=== PATIENT | female | born 1980 | race Caucasian/White ===

== ENCOUNTER 2017-09-07 11:55 | Day surgery (SDC) | payer OTHER ==
[~2017-09-07] VITALS: Ht 177.8 cm; Wt 71.2 kg
[~2017-09-07 11:55] MED LIST: ALLE; CHOL10002; Cryselle1 EACH PO; Daily Multiple1 EACH PO; FISH1000 PO; FLONASE ALLERG9.9 ML NS; Flovent Diskus50 MCG IH; Multiple Vitam1 EAC1 PO; NADO40; OMEP20ER PO; SULTRIDS PO; Sudogest30 MG PO; TRIA80TC TOP; VITAMIN D3400 UNIT PO
== END 2017-09-07 15:48 | disposition home or self-care (01) ==
LOC: ORSCSDS 11:55
PROVIDERS: Internal Medicine Gastroenterology
PROC: 0DJ08ZZ Inspection of Upper Intestinal Tract, Via Natural or Artificial Opening Endoscopic (ICD-10-PCS; principal; 2017-09-07 13:00)
DX: I85.00 Esophageal varices without bleeding (principal); I10 Essential (primary) hypertension; B15.9 Hepatitis A without hepatic coma; B19.20 Unspecified viral hepatitis C without hepatic coma; Z79.3 Long term (current) use of hormonal contraceptives; Z87.891 Personal history of nicotine dependence; Z79.899 Other long term (current) drug therapy
CPT/HCPCS: J7120

== ENCOUNTER 2018-02-08 12:45 | Emergency (ER) | payer OTHER ==
[~2018-02-08] VITALS: Ht 177.8 cm; Wt 70.3 kg
== END 2018-02-08 16:05 | disposition home or self-care (01) ==
LOC: ER 12:45
DX: S01.81XA Laceration without foreign body of other part of head, initial encounter (principal); S50.311A Abrasion of right elbow, initial encounter; S80.212A Abrasion, left knee, initial encounter; S80.211A Abrasion, right knee, initial encounter; W17.89XA Other fall from one level to another, initial encounter; Z79.899 Other long term (current) drug therapy; F17.200 Nicotine dependence, unspecified, uncomplicated
CPT/HCPCS: 12011; 70450; 72125; 73080; 90471; 90714; 99285-25; L0160

== ENCOUNTER 2020-01-30 22:25 | Emergency (ER) | payer OTHER ==
[~2020-01-30] VITALS: Ht 177.8 cm; Wt 90.7 kg
[~2020-01-30 22:25] MED LIST changes: +Bactrim Ds Tab1 EACH PO; +CEPH500 PO
== END 2020-01-30 22:46 | disposition home or self-care (01) ==
LOC: ER 22:25
DX: Z48.01 Encounter for change or removal of surgical wound dressing (principal); F17.210 Nicotine dependence, cigarettes, uncomplicated
CPT/HCPCS: 99282

== ENCOUNTER 2020-02-02 21:03 | Emergency (ER) | payer OTHER ==
[~2020-02-02] VITALS: Ht 177.8 cm; Wt 90.7 kg
== END 2020-02-03 00:37 | disposition home or self-care (01) ==
LOC: ER 21:03
DX: Z48.01 Encounter for change or removal of surgical wound dressing (principal); F17.210 Nicotine dependence, cigarettes, uncomplicated
CPT/HCPCS: 99282

== ENCOUNTER 2020-04-17 20:48 | Emergency (ER) | payer OTHER ==
[~2020-04-17] VITALS: Ht 177.8 cm; Wt 88.9 kg
[2020-04-17] MEDS ORDERED: CEFP200 PO (22:23)
== END 2020-04-17 22:34 | disposition home or self-care (01) ==
LOC: ER 20:48
DX: L03.116 Cellulitis of left lower limb (principal); L72.3 Sebaceous cyst; F17.210 Nicotine dependence, cigarettes, uncomplicated
CPT/HCPCS: 10060; 99283-25; A9270-GY

== ENCOUNTER 2020-05-02 11:17 | Emergency (ER) | payer OTHER ==
[~2020-05-02] VITALS: Ht 177.8 cm; Wt 81.2 kg
[~2020-05-02 11:17] MED LIST changes: +CEFP200 PO
[2020-05-02] MEDS ORDERED: CEPH500 PO (13:13)
[2020-05-02] MEDS ORDERED: Bactrim Ds Tab1 EACH PO (13:13)
== END 2020-05-02 13:59 | disposition home or self-care (01) ==
LOC: ER 11:17
DX: S61.216A Laceration without foreign body of right little finger without damage to nail, initial encounter (principal); L97.829 Non-pressure chronic ulcer of other part of left lower leg with unspecified severity; I10 Essential (primary) hypertension; F17.210 Nicotine dependence, cigarettes, uncomplicated; W26.0XXA Contact with knife, initial encounter
CPT/HCPCS: 99283; A9270-GY

== ENCOUNTER 2021-05-11 21:47 | Emergency (ER) | payer OTHER ==
[~2021-05-11] VITALS: Ht 177.8 cm; Wt 87.1 kg
[2021-05-12 00:05] LABS: Influenza A, PCR NEGATIVE (NEGATIVE); Influenza B, PCR NEGATIVE (NEGATIVE); Resp Syncytial Virus, PCR NEGATIVE (NEGATIVE); SARS-Cov-2 (COVID-19) PCR, MMC NEGATIVE (NEGATIVE)
== END 2021-05-12 00:40 | disposition home or self-care (01) ==
LOC: ER 21:47
PROVIDERS: Physician Assistant
DX: B34.9 Viral infection, unspecified (principal); Z20.822 Contact with and (suspected) exposure to COVID-19; I10 Essential (primary) hypertension; F17.200 Nicotine dependence, unspecified, uncomplicated
CPT/HCPCS: 0241U; 71045; 99284-25

== ENCOUNTER 2021-07-01 07:45 | Day surgery (SDC) | payer OTHER ==
[~2021-07-01] VITALS: Ht 177.8 cm; Wt 92.2 kg
[~2021-07-01 07:45] MED LIST changes: +FLONASE ALLERG9.9 ML; +NADO40 PO; +Naltrexone HCl50 MG PO
--- NOTE | 2021-07-01 08:26 | NUR ---
History, Chart, Medications and Allergies reviewed before start of procedure. Lungs clear T/O to Auscultation. Patient confirms NPO status and agrees with scheduled surgery. Pre-Op teaching done. Pt verbalizes understanding. Patient States Post-Procedure ride home has been arranged.
--- NOTE | 2021-07-01 09:08 | NUR ---
07/01/21 0908 Celia Marino History, Chart, Medications and Allergies reviewed before start of procedure. Patient confirms NPO status and agrees with scheduled surgery. 3-LEAD EKG REVIEWED WITH PHYSICIAN PRIOR TO START OF PROCEDURE. MONITOR INTACT WITH CONTINUOUS PULSE OXIMETRY AND INTERMITTENT BP. PATIENT DETERMINED TO BE ASA APPROPRIATE FOR PROPOFOL SEDATION PRIOR TO START OF PROCEDURE BY DR. BUENO.
--- NOTE | 2021-07-01 09:45 | NUR ---
Patient up to Ambulate independently. Gait steady. Discharge instructions reviewed with patient. Patient verbalizes understanding. Copy given to patient to take home. Patient States Post-Procedure ride home has been arranged. Discharged via wheelchair to private car for ride home. JOSE R PO FLUIDS WELL.
== END 2021-07-01 09:48 | disposition home or self-care (01) ==
LOC: ORSCMMR 07:45 → ORD 08:45 → ORSCMMR 09:48
PROVIDERS: Internal Medicine Gastroenterology
PROC: 0DJ08ZZ Inspection of Upper Intestinal Tract, Via Natural or Artificial Opening Endoscopic (ICD-10-PCS; principal; 2021-07-01 08:45)
DX: K70.30 Alcoholic cirrhosis of liver without ascites (principal); Z85.01 Personal history of malignant neoplasm of esophagus; Z86.19 Personal history of other infectious and parasitic diseases; Z79.899 Other long term (current) drug therapy
CPT/HCPCS: J2250; J2704; J7120

== ENCOUNTER → 2022-02-05 | Outpatient (CLI) | payer OTHER ==
[2022-02-05 17:14] LABS: BASOPHILS ABSOLUTE AUTO 0.07 K/mm3 (0.00-0.23); BASOPHILS PERCENT AUTO 1 % (0-2); EOSINOPHILS ABSOLUTE AUTO 0.16 K/mm3 (0.00-0.68); EOSINOPHILS PERCENT AUTO 3 % (0-6); Hematocrit 34.8 % (33.0-51.0); Hemoglobin 10.1 g/dL (11.5-16.0); IMMATURE GRAN ABSOLUTE AUTO 0.01 K/mm3 (0.00-0.10); IMMATURE GRAN PERCENT AUTO 0 % (0-1); LYMPHOCYTES ABSOLUTE AUTO 1.28 K/mm3 (0.84-5.20); LYMPHOCYTES PERCENT AUTO 24 % (21-46); MONOCYTES ABSOLUTE AUTO 0.52 K/mm3 (0.16-1.47); MONOCYTES PERCENT AUTO 10 % (4-13); Mean Corpuscular HGB 21.6 pg (26.0-34.0); Mean Corpuscular Volume 74 fL (80-100); Mean Platelet Volume 11.7 fL (9.1-12.4); NEUTROPHILS ABSOLUTE AUTO 3.23 K/mm3 (1.96-9.15); NEUTROPHILS PERCENT AUTO 61 % (41-73); Platelet Count 198 K/mm3 (150-400); RDW Coefficient Variation 19.1 % (11.7-14.2); RDW Standard Deviation 50.7 fL (35.1-46.3); Red Blood Cell Count 4.68 M/mm3 (3.80-5.20); White Blood Cell Count 5.27 K/mm3 (4.00-11.30)
[2022-02-05 19:17] LABS: Alanine Aminotransfer (ALT/SGP 47 U/L (12-78); Albumin, Blood 3.6 g/dL (3.4-5.0); Alk Phos 118 U/L (50-136); Anion Gap 8 mmol/L (6-16); Aspartate Aminotrans (AST/SGOT 68 U/L (12-37); Bilirubin, Total 0.5 mg/dL (0.1-1.0); Blood Urea Nitrogen 13 mg/dL (8-24); Bun/Creatinine Ratio 20.1 (12.0-20.0); CHOL/HDL RATIO 4.1; CO2, Blood 23 mmol/L (21-32); Calcium, Blood 9.2 mg/dL (8.5-10.1); Chloride, Blood 107 mmol/L (98-108); Cholesterol 156 mg/dL (50-200); Creatinine, Blood 0.65 mg/dL (0.40-1.00); Globulin, Blood 3.7 g/dL (2.2-4.0); Glomerular Filtration Rate 112 (60-); Glucose, Blood 113 mg/dL (70-99); HDL Cholesterol 38 mg/dL (>39); LDL/HDL RATIO 2.3; Low Density Lipoprotein Chol 86 mg/dL (0-110); Potassium, Blood 3.9 mmol/L (3.5-5.5); Sodium, Blood 138 mmol/L (136-145); Total Protein, Blood 7.3 g/dL (6.4-8.2); Triglycerides 158 mg/dL (30-160); Very Low Density Lipoprot Chol 31 mg/dL (6-32)
== END | disposition home or self-care (01) ==
LOC: LAB SHORT 11:20 → LAB 11:20
PROVIDERS: Internal Medicine
DX: F10.288 Alcohol dependence with other alcohol-induced disorder (principal); K74.60 Unspecified cirrhosis of liver
CPT/HCPCS: 80053; 80061; 82105; 83036; 85025

== ENCOUNTER 2022-03-11 07:27 | Day surgery (SDC) | payer OTHER ==
[~2022-03-11] VITALS: Ht 177.8 cm; Wt 94.2 kg
[2022-03-11] MEDS ORDERED: FERSU90EL (07:45)
== END 2022-03-11 09:40 | disposition home or self-care (01) ==
LOC: ORSCSDS 07:27
PROVIDERS: Internal Medicine Gastroenterology
PROC: 0DBL8ZX Excision of Transverse Colon, Via Natural or Artificial Opening Endoscopic, Diagnostic (ICD-10-PCS; principal; 2022-03-11 08:15)
PROC: 0DBN8ZX Excision of Sigmoid Colon, Via Natural or Artificial Opening Endoscopic, Diagnostic (ICD-10-PCS; principal; 2022-03-11 08:15)
PROC: 0DBK8ZX Excision of Ascending Colon, Via Natural or Artificial Opening Endoscopic, Diagnostic (ICD-10-PCS; principal; 2022-03-11 08:15)
PROC: 0DJ08ZZ Inspection of Upper Intestinal Tract, Via Natural or Artificial Opening Endoscopic (ICD-10-PCS; principal; 2022-03-11 08:15)
DX: D50.9 Iron deficiency anemia, unspecified (principal); K70.30 Alcoholic cirrhosis of liver without ascites; I85.10 Secondary esophageal varices without bleeding; Z85.01 Personal history of malignant neoplasm of esophagus; D12.2 Benign neoplasm of ascending colon; D12.3 Benign neoplasm of transverse colon; K63.5 Polyp of colon; K64.8 Other hemorrhoids; K57.30 Diverticulosis of large intestine without perforation or abscess without bleeding; Z87.891 Personal history of nicotine dependence; Z79.899 Other long term (current) drug therapy
CPT/HCPCS: 88305; J2704; J7120

== ENCOUNTER → 2022-11-23 | Emergency (ER) | payer OTHER ==
[~2022-11-23] VITALS: Ht 177.8 cm; Wt 95.2 kg
[~2022-11-23] MED LIST changes: +FERROUS GLUCON324 M2 PO; +FERSU90EL; +PANT40 PO; +SUCR1 PO
[2022-11-23 19:05] LABS: BASOPHILS ABSOLUTE AUTO 0.09 K/mm3 (0.00-0.23); BASOPHILS PERCENT AUTO 1 % (0-2); EOSINOPHILS ABSOLUTE AUTO 0.17 K/mm3 (0.00-0.68); EOSINOPHILS PERCENT AUTO 2 % (0-6); Hematocrit 35.1 % (33.0-51.0); Hemoglobin 10.8 g/dL (11.5-16.0); IMMATURE GRAN ABSOLUTE AUTO 0.03 K/mm3 (0.00-0.10); IMMATURE GRAN PERCENT AUTO 0 % (0-1); LYMPHOCYTES ABSOLUTE AUTO 2.09 K/mm3 (0.84-5.20); LYMPHOCYTES PERCENT AUTO 28 % (21-46); MONOCYTES ABSOLUTE AUTO 0.93 K/mm3 (0.16-1.47); MONOCYTES PERCENT AUTO 12 % (4-13); Mean Corpuscular HGB 28.3 pg (26.0-34.0); Mean Corpuscular HGB Conc 30.8 g/dL (31.5-36.5); Mean Corpuscular Volume 92 fL (80-100); Mean Platelet Volume 11.2 fL (9.1-12.4); NEUTROPHILS ABSOLUTE AUTO 4.16 K/mm3 (1.96-9.15); NEUTROPHILS PERCENT AUTO 56 % (41-73); Platelet Count 164 K/mm3 (150-400); RDW Coefficient Variation 17.7 % (11.7-14.2); Red Blood Cell Count 3.82 M/mm3 (3.80-5.20); White Blood Cell Count 7.47 K/mm3 (4.00-11.30)
[2022-11-23 19:32] LABS: Albumin, Blood 3.1 g/dL (3.4-5.0); Albumin/Globulin Ratio 0.8 (0.8-1.8); Bilirubin, Total 0.3 mg/dL (0.1-1.0); Calcium, Blood 8.9 mg/dL (8.5-10.1); Creatinine, Blood 0.66 mg/dL (0.40-1.00); Globulin, Blood 3.9 g/dL (2.2-4.0); Potassium, Blood 3.5 mmol/L (3.5-5.5)
[2022-11-23 20:08] LABS: Source, Urine Clean Catch
[2022-11-23 20:23] LABS: Bilirubin, Urine Neg (Neg); Blood, Urine 2+ (Neg); Glucose Qualitative, Urine Neg (Neg); Ketones, Urine Neg (Neg); Leukocyte Esterase, Urine Neg (Neg); Nitrite, Urine Neg (Neg); Protein, Urine 1+ (Neg); Urobilinogen, Urine NORM (Normal)
[2022-11-23 20:48] LABS: Appearance, Urine Clear (Clear); Color, Urine Yellow (P-Yellow)
[2022-11-23 20:53] LABS: Bacteria Rare /hpf; Squamous Epithelial Cells Few /hpf (Few); White Blood Cells, Urine Not Seen /hpf (0-5)
[2022-11-23 23:30] VITALS: BP 120/78
== END ==
LOC: ER 18:37
PROVIDERS: Physician Assistant
DX: R53.1 Weakness (principal); R53.83 Other fatigue; Z79.899 Other long term (current) drug therapy; I10 Essential (primary) hypertension; F17.210 Nicotine dependence, cigarettes, uncomplicated
CPT/HCPCS: 80053; 81001; 81025; 85025; 99285-25

== ENCOUNTER 2023-05-05 17:37 | Inpatient (IN) | payer OTHER ==
[~2023-05-05] VITALS: Ht 177.8 cm; Wt 84.4 kg
[2023-05-05 18:29] LABS: BASOPHILS ABSOLUTE AUTO 0.04 K/mm3 (0.00-0.23); BASOPHILS PERCENT AUTO 0 % (0-2); EOSINOPHILS ABSOLUTE AUTO 0.02 K/mm3 (0.00-0.68); EOSINOPHILS PERCENT AUTO 0 % (0-6); Hematocrit 42.6 % (33.0-51.0); Hemoglobin 14.3 g/dL (11.5-16.0); IMMATURE GRAN ABSOLUTE AUTO 0.07 K/mm3 (0.00-0.10); IMMATURE GRAN PERCENT AUTO 1 % (0-1); LYMPHOCYTES ABSOLUTE AUTO 0.72 K/mm3 (0.84-5.20); LYMPHOCYTES PERCENT AUTO 8 % (21-46); MONOCYTES ABSOLUTE AUTO 0.99 K/mm3 (0.16-1.47); MONOCYTES PERCENT AUTO 11 % (4-13); Mean Corpuscular HGB Conc 33.6 g/dL (31.5-36.5); Mean Corpuscular Volume 92 fL (80-100); Mean Platelet Volume 10.6 fL (9.1-12.4); NEUTROPHILS ABSOLUTE AUTO 7.57 K/mm3 (1.96-9.15); NEUTROPHILS PERCENT AUTO 81 % (41-73); Platelet Count 102 K/mm3 (150-400); RDW Coefficient Variation 15.1 % (11.7-14.2); RDW Standard Deviation 50.8 fL (35.1-46.3); Red Blood Cell Count 4.62 M/mm3 (3.80-5.20); White Blood Cell Count 9.41 K/mm3 (4.00-11.30)
[2023-05-05 18:45] LABS: Albumin, Blood 3.4 g/dL (3.4-5.0); Albumin/Globulin Ratio 0.7 (0.8-1.8); Bilirubin, Total 1.2 mg/dL (0.1-1.0); Bun/Creatinine Ratio 22.7 (12.0-20.0); Calcium, Blood 9.1 mg/dL (8.5-10.1); Creatinine, Blood 0.62 mg/dL (0.40-1.00); Globulin, Blood 4.6 g/dL (2.2-4.0); Potassium, Blood 3.5 mmol/L (3.5-5.5)
[2023-05-05 19:10] LABS: Source, Urine Clean Catch
[2023-05-05 19:13] LABS: Appearance, Urine Cloudy (Clear); Bilirubin, Urine Neg (Neg); Blood, Urine 4+ (Neg); Color, Urine Yellow (P-Yellow); Glucose Qualitative, Urine Neg (Neg); Ketones, Urine Neg (Neg); Leukocyte Esterase, Urine 3+ (Neg); Nitrite, Urine Pos (Neg); Protein, Urine 3+ (Neg); Urobilinogen, Urine 2+ (Normal)
[2023-05-05 19:21] LABS: Hyaline Casts 0-2 /lpf (0-2)
[2023-05-05 19:22] LABS: Bacteria Many /hpf; Squamous Epithelial Cells Mod /hpf (Few); White Blood Cells, Urine 25-50 /hpf (0-5)
--- NOTE | 2023-05-06 01:05 | NUR ---
NEW ADMIT. PATIENT ARRIVED TO ROOM 303 FROM THE ER VIA GURNEY. PATIENT SELF TRANSFER TO HOSPITAL BED. SIGNIFICANT OTHER AT BEDSIDE.
[2023-05-06 01:10] VITALS: BP 145/92
[2023-05-06 03:54] VITALS: BP 140/99
--- NOTE | 2023-05-06 04:44 | NUR ---
SHIFT SUMMARY PATIENT A/O X4, ABLE TO MAKE NEEDS KNOWN, AND CALLS APPROPRIATELY. PATIENT IS OF PLEASANT AFFECT. SIGNIFICANT OTHER TOOK PERSONAL BELONGINGS WITH HIM. PATIENT PREFERRED TO STAY IN HER OWN CLOTHES. COOPERATIVE WITH CARE. TELE IN ON. PATIENT HAS SOME ABDOMINAL PAIN AND TENDERNESS-DENIES NEED FOR INTERVENTION. PATIENT IS ABLE TO STAND AND WALK TO BATHROOM. SLEPT OFF AND ON FROM TIME OF ARRIVAL. CIWAS IN PLACE-0400 SCORE WAS 0. PER REPORT FROM ED PATIENT DENIED HAVING WITHDRAWL SYMPTOMS. PATIENT REPORTS LAST DRINK WAS 05/04/23. SEIZURE PRECAUTIONS IN PLACE PER ORDER. BED IS LOCKED IN THE LOWEST POSITION WITH CALL LIGHT IN REACH. NO S/S OF DISTRESS NOTED AT THIS TIME.
[2023-05-06 05:03] LABS: BASOPHILS ABSOLUTE AUTO 0.03 K/mm3 (0.00-0.23); BASOPHILS PERCENT AUTO 1 % (0-2); EOSINOPHILS ABSOLUTE AUTO 0.01 K/mm3 (0.00-0.68); EOSINOPHILS PERCENT AUTO 0 % (0-6); Hematocrit 41.5 % (33.0-51.0); Hemoglobin 13.7 g/dL (11.5-16.0); IMMATURE GRAN ABSOLUTE AUTO 0.04 K/mm3 (0.00-0.10); IMMATURE GRAN PERCENT AUTO 1 % (0-1); LYMPHOCYTES PERCENT AUTO 8 % (21-46); MONOCYTES ABSOLUTE AUTO 0.89 K/mm3 (0.16-1.47); MONOCYTES PERCENT AUTO 13 % (4-13); Mean Corpuscular HGB 30.5 pg (26.0-34.0); Mean Corpuscular Volume 92 fL (80-100); NEUTROPHILS ABSOLUTE AUTO 5.18 K/mm3 (1.96-9.15); NEUTROPHILS PERCENT AUTO 78 % (41-73); Platelet Count 89 K/mm3 (150-400); RDW Standard Deviation 50.1 fL (35.1-46.3); Red Blood Cell Count 4.49 M/mm3 (3.80-5.20); White Blood Cell Count 6.65 K/mm3 (4.00-11.30)
[2023-05-06 05:23] LABS: Albumin, Blood 3.1 g/dL (3.4-5.0); Albumin/Globulin Ratio 0.7 (0.8-1.8); Bilirubin, Total 0.8 mg/dL (0.1-1.0); Bun/Creatinine Ratio 17.1 (12.0-20.0); Calcium, Blood 8.6 mg/dL (8.5-10.1); Creatinine, Blood 0.59 mg/dL (0.40-1.00); Globulin, Blood 4.2 g/dL (2.2-4.0); Potassium, Blood 3.4 mmol/L (3.5-5.5); Total Protein, Blood 7.3 g/dL (6.4-8.2)
[2023-05-06 07:19] VITALS: BP 133/87
--- NOTE | 2023-05-06 09:00 | NUR ---
pt laying in bed with visitor at bedside, a/ox4, pleasant and cooperative with care, follows commands well, denies pain states her night was ok, lungs clear, r/a, no cough noted, hrr, no edema noted, ppp+2, cap refill<3sec, vs stable, afebrile, piv site to rfa is clear and patent, btx4, abd flat soft nontender, voids without diff, up ad jovana in room, marylin, call light in reach.
--- NOTE | 2023-05-06 14:49 | NUR ---
pt is being discharged to [facility], report was called. they were informed of her + orthostatic situation. visitors in room at this time. call light in reach.
[2023-05-06 15:16] VITALS: BP 134/93
--- NOTE | 2023-05-06 15:30 | NUR ---
pt has a temp of 100.1, tylenol given, she also started her menses, pads given to her. up to bathroom indep, no further needs, call light in reach.
--- NOTE | 2023-05-06 18:13 | NUR ---
pt had a low grade fever this afternoon, getting herself up to the bathroom indep, gait noted to be steady, no s/s of w/d except h/a, no further changes or needs, call light in reach.
[2023-05-06 19:33] VITALS: BP 129/76
[2023-05-07 04:28] VITALS: BP 144/96
--- NOTE | 2023-05-07 06:10 | NUR ---
SHIFT SUMMARY. NO ACUTE CHANGES. PATIENT CALLS APPROPRIATELY. PATIENT IS RUNNING LR AT 100MLS/HR. TELE IS ON WITH LEADS IN PLACE-SINUS RHYTHM AT 73.PT C/O HEADACHE-MEDICATED PER EMAR. CIWAS AT A STABLE WITHDRAW-2000:0, 0000:0, AND 0400:2 (MILD HEADACHE). BED IS LOCKED IN THE LOWEST POSITION WITH CALL LIGHT IN REACH.
[2023-05-07 07:11] LABS: BASOPHILS ABSOLUTE AUTO 0.03 K/mm3 (0.00-0.23); BASOPHILS PERCENT AUTO 1 % (0-2); EOSINOPHILS ABSOLUTE AUTO 0.05 K/mm3 (0.00-0.68); EOSINOPHILS PERCENT AUTO 1 % (0-6); Hematocrit 36.6 % (33.0-51.0); Hemoglobin 12.1 g/dL (11.5-16.0); IMMATURE GRAN ABSOLUTE AUTO 0.02 K/mm3 (0.00-0.10); IMMATURE GRAN PERCENT AUTO 1 % (0-1); LYMPHOCYTES ABSOLUTE AUTO 0.66 K/mm3 (0.84-5.20); LYMPHOCYTES PERCENT AUTO 16 % (21-46); MONOCYTES ABSOLUTE AUTO 0.64 K/mm3 (0.16-1.47); MONOCYTES PERCENT AUTO 16 % (4-13); Mean Corpuscular HGB 30.5 pg (26.0-34.0); Mean Corpuscular HGB Conc 33.1 g/dL (31.5-36.5); Mean Corpuscular Volume 92 fL (80-100); Mean Platelet Volume 11.6 fL (9.1-12.4); NEUTROPHILS ABSOLUTE AUTO 2.69 K/mm3 (1.96-9.15); NEUTROPHILS PERCENT AUTO 66 % (41-73); Platelet Count 82 K/mm3 (150-400); RDW Coefficient Variation 14.9 % (11.7-14.2); RDW Standard Deviation 50.7 fL (35.1-46.3); Red Blood Cell Count 3.97 M/mm3 (3.80-5.20); White Blood Cell Count 4.09 K/mm3 (4.00-11.30)
[2023-05-07 07:32] LABS: Bun/Creatinine Ratio 12.9 (12.0-20.0); Calcium, Blood 7.8 mg/dL (8.5-10.1); Creatinine, Blood 0.54 mg/dL (0.40-1.00); Potassium, Blood 3.3 mmol/L (3.5-5.5)
[2023-05-07 07:38] VITALS: BP 128/92
[2023-05-07] MEDS ORDERED: MULVITA PO (12:27)
[2023-05-07] MEDS ORDERED: ACET325 PO (12:27)
[2023-05-07] MEDS ORDERED: CEFP200 PO (12:27)
[2023-05-07] MEDS ORDERED: VISBIOME 112.51 EACH PO (12:28)
[2023-05-07] MEDS ORDERED: B-1100 M1 PO (12:28)
--- NOTE | 2023-05-07 16:01 | NUR ---
DISCHARGE SUMMARY PATIENT WITH NO ACUTE EVENTS DURING SHIFT. CIWAAS CONTINUE CLINT ZERO. PATIENT MEDICATION AND EDUCATION PACKET PRINTED AND SIGNED BY PATIENT AND EDUCATION PROVIDED. ALL QUESTIONS ANSEREED. PATIENT LEFT UNIT WITH FIANCE AT 1352, PATIENT REQUESTED TO WALK HERSELF OUT WITH FIANCE.
== END 2023-05-07 13:53 | disposition home or self-care (01) | DRG 872 ==
LOC: ER 17:37 → MEDS 23:08
PROVIDERS: Family Medicine; Student in an Organized Health Care Education/Training Program; ADMIT Student in an Organized Health Care Education/Training Program
DX: A41.51 Sepsis due to Escherichia coli [E. coli] (principal); N12 Tubulo-interstitial nephritis, not specified as acute or chronic; I85.10 Secondary esophageal varices without bleeding; K70.30 Alcoholic cirrhosis of liver without ascites; F10.10 Alcohol abuse, uncomplicated; K76.0 Fatty (change of) liver, not elsewhere classified; E87.6 Hypokalemia; R16.1 Splenomegaly, not elsewhere classified; F17.210 Nicotine dependence, cigarettes, uncomplicated; D69.6 Thrombocytopenia, unspecified; I10 Essential (primary) hypertension; Q23.8 Other congenital malformations of aortic and mitral valves; Z90.49 Acquired absence of other specified parts of digestive tract
CPT/HCPCS: 36415; 74177; 80048; 80053; 81001; 85025; 87077; 87086; 87186; 96365; 96366; 99285-25; A9270; J0696; J1650; J7030; J7120; Q9967

== ENCOUNTER 2024-03-06 06:20 | Emergency (ER) | payer OTHER ==
[~2024-03-06] VITALS: Ht 177.8 cm; Wt 90.7 kg
[~2024-03-06 06:20] MED LIST changes: +ACET325 PO; +B-1100 M1 PO; +MULVITA PO; +VISBIOME 112.51 EACH PO
[2024-03-06] MEDS ORDERED: Ondansetron HCl 2 MG / ML 2ML Vial IV ONE (06:30)
[2024-03-06] MEDS ORDERED: Octreotide Acetate 500 MCG in NS 250 ML IV SCH (06:30)
[2024-03-06] MEDS ORDERED: Pantoprazole Sodium 40 MG Injection IV ONE (06:30)
[2024-03-06] MEDS ORDERED: NS 1,000 ML IV SCH (06:30)
[2024-03-06] MEDS ORDERED: Octreotide Acetate 50 MCG in NS 50 ML IV STA (06:30)
[2024-03-06] MEDS ORDERED: CefTRIAXone Sodium 1,000 MG in NS 50 ML IV ONE (06:35)
[2024-03-06] MEDS ORDERED: PHENobarbital Sodium 65MG / ML 1ML Vial IV ONE (06:35)
[2024-03-06 06:57] LABS: BASOPHILS ABSOLUTE AUTO 0.15 K/mm3 (0.00-0.23); BASOPHILS PERCENT AUTO 1 % (0-2); EOSINOPHILS PERCENT AUTO 1 % (0-6); Hematocrit 30.4 % (33.0-51.0); Hemoglobin 9.6 g/dL (11.5-16.0); IMMATURE GRAN ABSOLUTE AUTO 0.15 K/mm3 (0.00-0.10); IMMATURE GRAN PERCENT AUTO 1 % (0-1); LYMPHOCYTES ABSOLUTE AUTO 1.76 K/mm3 (0.84-5.20); LYMPHOCYTES PERCENT AUTO 9 % (21-46); MONOCYTES ABSOLUTE AUTO 1.39 K/mm3 (0.16-1.47); MONOCYTES PERCENT AUTO 7 % (4-13); Mean Corpuscular HGB 27.4 pg (26.0-34.0); Mean Corpuscular HGB Conc 31.6 g/dL (31.5-36.5); Mean Corpuscular Volume 87 fL (80-100); Mean Platelet Volume 10.9 fL (9.1-12.4); NEUTROPHILS PERCENT AUTO 82 % (41-73); Platelet Count 294 K/mm3 (150-400); RDW Coefficient Variation 14.7 % (11.7-14.2); RDW Standard Deviation 46.5 fL (35.1-46.3); Red Blood Cell Count 3.51 M/mm3 (3.80-5.20); White Blood Cell Count 19.35 K/mm3 (4.00-11.30)
[2024-03-06 07:17] LABS: Albumin/Globulin Ratio 0.9 (0.8-1.8); Bilirubin, Total 0.5 mg/dL (0.1-1.0); Bun/Creatinine Ratio 60.2 (12.0-20.0); Calcium, Blood 8.4 mg/dL (8.5-10.1); Creatinine, Blood 0.63 mg/dL (0.40-1.00); Globulin, Blood 3.5 g/dL (2.2-4.0); Potassium, Blood 3.8 mmol/L (3.5-5.5); Total Protein, Blood 6.5 g/dL (6.4-8.2)
[2024-03-06 07:52] LABS: International Normalized Ratio 1.07; Prothrombin Time Results 11.4 Sec (9.7-11.5)
[2024-03-06 10:30] VITALS: BP 151/107
== END 2024-03-06 10:48 | disposition short-term general hospital (02) ==
LOC: ER 06:20
PROVIDERS: Emergency Medicine
DX: K92.2 Gastrointestinal hemorrhage, unspecified (principal); I10 Essential (primary) hypertension; K21.9 Gastro-esophageal reflux disease without esophagitis; F17.210 Nicotine dependence, cigarettes, uncomplicated; Z79.899 Other long term (current) drug therapy
CPT/HCPCS: 80053; 85025; 85610; 85730; 86850; 86900; 86901; 93005; 93010; 96365; 96366; 96367; 96375; 99285-25; J0696; J2354; J2405; J2470; J2560; J7030; J7050

== ENCOUNTER → 2024-03-24 | Outpatient (CLI) | payer OTHER ==
[~2024-03-24] MED LIST changes: +FOLI1 PO
[2024-03-24 15:25] LABS: Hematocrit 26.7 % (33.0-51.0); Mean Corpuscular HGB 24.4 pg (26.0-34.0); Mean Corpuscular Volume 81 fL (80-100); Platelet Count 285 K/mm3 (150-400); RDW Coefficient Variation 18.8 % (11.7-14.2); RDW Standard Deviation 55.7 fL (35.1-46.3); Red Blood Cell Count 3.28 M/mm3 (3.80-5.20)
== END ==
LOC: LAB SHORT 14:15 → LAB 14:15
PROVIDERS: Family Medicine Adult Medicine
DX: D50.9 Iron deficiency anemia, unspecified (principal)
CPT/HCPCS: 82728; 83540; 83550; 85027

== ENCOUNTER 2024-04-03 10:20 | Day surgery (SDC) | payer OTHER ==
[~2024-04-03 10:20] MED LIST changes: -FOLI1 PO
[2024-04-03] MEDS ORDERED: Sod Ferric Gluc Complx/Sucrose 125 MG in NS 100 ML IV SCH (12:00)
[2024-04-03 13:37] VITALS: BP 142/86
[2024-04-03] MEDS ORDERED: SUCR1 PO (13:54)
[2024-04-03] MEDS ORDERED: FOLI1 PO (13:54)
== END 2024-04-03 14:58 | disposition home or self-care (01) ==
LOC: ATC 10:20
DX: D50.9 Iron deficiency anemia, unspecified (principal); I10 Essential (primary) hypertension; K21.9 Gastro-esophageal reflux disease without esophagitis; F10.20 Alcohol dependence, uncomplicated; Z87.891 Personal history of nicotine dependence; Z90.49 Acquired absence of other specified parts of digestive tract
CPT/HCPCS: 96365; J2916

== ENCOUNTER 2024-04-04 02:00 | Day surgery (SDC) | payer OTHER ==
[~2024-04-04 02:00] MED LIST changes: +FOLI1 PO
[2024-04-04] MEDS ORDERED: Sod Ferric Gluc Complx/Sucrose 125 MG in NS 100 ML IV SCH (07:20)
[2024-04-04 14:21] VITALS: BP 140/91
== END 2024-04-04 15:28 | disposition home or self-care (01) ==
LOC: ATC 02:00
DX: D50.9 Iron deficiency anemia, unspecified (principal); F10.20 Alcohol dependence, uncomplicated; K21.9 Gastro-esophageal reflux disease without esophagitis; K74.60 Unspecified cirrhosis of liver; I10 Essential (primary) hypertension; I85.00 Esophageal varices without bleeding; L72.3 Sebaceous cyst; Z79.899 Other long term (current) drug therapy
CPT/HCPCS: 96365; J2916

== ENCOUNTER 2024-04-05 04:17 | Day surgery (SDC) | payer OTHER ==
[~2024-04-05 04:17] MED LIST changes: +Sod Ferric Gluc Complx/Sucrose 125 MG in NS 100 ML IV SCH
[2024-04-05 14:07] VITALS: BP 161/96
== END 2024-04-05 15:16 | disposition home or self-care (01) ==
LOC: ATC 04:17
DX: D50.9 Iron deficiency anemia, unspecified (principal); I10 Essential (primary) hypertension; K21.9 Gastro-esophageal reflux disease without esophagitis; F10.10 Alcohol abuse, uncomplicated; Z79.899 Other long term (current) drug therapy
CPT/HCPCS: 96365; J2916

== ENCOUNTER 2024-09-16 07:08 | Observation (INO) | payer OTHER ==
[~2024-09-16] VITALS: Ht 177.8 cm; Wt 87.4 kg
[~2024-09-16 07:08] MED LIST changes: -Sod Ferric Gluc Complx/Sucrose 125 MG in NS 100 ML IV SCH
[2024-09-16] MEDS ORDERED: CARV3.125 PO (07:57)
[2024-09-16 08:23] LABS: BASOPHILS ABSOLUTE AUTO 0.09 K/mm3 (0.00-0.23); BASOPHILS PERCENT AUTO 1 % (0-2); EOSINOPHILS ABSOLUTE AUTO 0.19 K/mm3 (0.00-0.68); EOSINOPHILS PERCENT AUTO 3 % (0-6); Hematocrit 39.1 % (33.0-51.0); Hemoglobin 12.3 g/dL (11.5-16.0); IMMATURE GRAN ABSOLUTE AUTO 0.03 K/mm3 (0.00-0.10); IMMATURE GRAN PERCENT AUTO 0 % (0-1); LYMPHOCYTES ABSOLUTE AUTO 1.56 K/mm3 (0.84-5.20); LYMPHOCYTES PERCENT AUTO 21 % (21-46); MONOCYTES ABSOLUTE AUTO 0.64 K/mm3 (0.16-1.47); MONOCYTES PERCENT AUTO 9 % (4-13); Mean Corpuscular HGB 28.7 pg (26.0-34.0); Mean Corpuscular HGB Conc 31.5 g/dL (31.5-36.5); Mean Corpuscular Volume 91 fL (80-100); Mean Platelet Volume 10.5 fL (9.1-12.4); NEUTROPHILS ABSOLUTE AUTO 4.87 K/mm3 (1.96-9.15); NEUTROPHILS PERCENT AUTO 66 % (41-73); Platelet Count 230 K/mm3 (150-400); RDW Standard Deviation 46.8 fL (35.1-46.3); Red Blood Cell Count 4.29 M/mm3 (3.80-5.20); White Blood Cell Count 7.38 K/mm3 (4.00-11.30)
[2024-09-16 08:39] LABS: International Normalized Ratio 1.07; Prothrombin Time Results 11.4 Sec (9.7-11.5)
[2024-09-16 08:51] LABS: Albumin, Blood 3.6 g/dL (3.4-5.0); Albumin/Globulin Ratio 0.9 (0.8-1.8); Bilirubin, Total 0.8 mg/dL (0.1-1.0); Bun/Creatinine Ratio 52.8 (12.0-20.0); Calcium, Blood 9.1 mg/dL (8.5-10.1); Creatinine, Blood 0.63 mg/dL (0.40-1.00); Globulin, Blood 3.9 g/dL (2.2-4.0); Potassium, Blood 3.2 mmol/L (3.5-5.5); Total Protein, Blood 7.5 g/dL (6.4-8.2)
[2024-09-16] MEDS ORDERED: Pantoprazole Sodium 40 MG in NS 50 ML IV SCH (09:00)
[2024-09-16] MEDS ORDERED: Pantoprazole Sodium 40 MG Injection IV ONE (09:00)
[2024-09-16] MEDS ORDERED: CefTRIAXone Sodium 1,000 MG in NS 50 ML IV SCH (09:05)
[2024-09-16] MEDS ORDERED: Octreotide Acetate 500 MCG in NS 250 ML IV SCH (09:05)
[2024-09-16] MEDS ORDERED: Octreotide Acetate 50 MCG in NS 50 ML IV ONE (09:05)
[2024-09-16] MEDS ORDERED: Potassium Chloride 40 MEQ in NS 250 ML IV ONE (11:40)
[2024-09-16] MEDS ORDERED: Lactated Ringer's 1,000 ML IV SCH (12:00)
[2024-09-16 12:17] VITALS: BP 160/113
[2024-09-16] MEDS ORDERED: Metoclopramide HCl 5MG / ML 2ML Vial IV ONE (12:55)
[2024-09-16] MEDS ORDERED: Folic Acid 1 MG in NS 50 ML IV SCH (13:00)
[2024-09-16] MEDS ORDERED: Thiamine HCl 100 MG in NS 50 ML IV SCH (13:00)
[2024-09-16] MEDS ORDERED: LORazepam 2 MG/ML 1ML Injection IV PRN (13:05)
[2024-09-16] MEDS ORDERED: ChlordiazePOXIDE 25 MG Cap PO PRN (13:05)
[2024-09-16 13:15] LABS: Hematocrit 36.3 % (33.0-51.0); Hemoglobin 11.8 g/dL (11.5-16.0)
[2024-09-16 14:20] VITALS: BP 151/108
--- NOTE | 2024-09-16 14:20 | NUR ---
INTO SDS VIA GURNEY. PT IS VERY DROWSY AND OBTUNDED. PT FALLS ASLEEP MID-SENTENCE. PIN POINT PUPILS NOTED. BP 151/108 HR 90-100'S SR TO ST. LUNGS CLEAR, RESPIRATIONS SHALLOW, SNORES AT TIMES. SATS>90% ON RA. NPO STATUS CONFIRMED. SANDOSTATIN @ 50 MCG/HOUR AND PROTONIX @ 8 MG/HOUR INFUSING. DR. BOYLE UPDATED TO CURRENT LABS. DR. BOYLE AWARE OF PIN POINT PUPILS AND THE FACT THAT PT IS OBTUNDED. NEW PIV #20 TO RIGHT FOREARM. AMMONIA, SERUM TOX SCREEN, SERUM ALCOHOL, AND HCG DRAWN AND SENT TO LAB/ORDERED STAT. PT K+3.2 KCL REPLETION STOPPED FOR NOW PER DR. BOYLE VERBAL ORDER.
[2024-09-16 16:01] LABS: U Amphetamine Screen DETECTED; U Barbituate Screen Not Detected; U Benzodiazapine Screen Not Detected; U Buprenorphine Screen Not Detected; U Cannabinoids Screen Not Detected; U Cocaine Screen Not Detected; U Methadone Screen Not Detected; U Methamphetamine Screen DETECTED; U Opiates Screen Not Detected; U Oxycodone Screen Not Detected; U Phencyclidine Screen Not Detected
[2024-09-16] MEDS ORDERED: propofoL 40 ML IV ONE (16:31)
--- NOTE | 2024-09-16 16:38 | NUR ---
09/16/24 1638 Tomasa Sandoval 1631- History, Chart, Medications and Allergies reviewed before start of procedure.MONITOR INTACT WITH CONTINUOUS PULSE OXIMETRY, CONTINUOUS END TITAL CO2, 3-LEAD EKG AND INTERMITTENT BLOOD PRESSURE.3-LEAD EKG REVIEWED WITH PHYSICIAN PRIOR TO START OF PROCEDURE.O2 VIA POM INTACT THROUGHOUT SEDATION/PROCEDURE.Bite Block Placed.DR. BOYLE PROVIDING MAC-SEE ANESTHESIA RECORD.
[2024-09-16 17:12] VITALS: BP 139/104
--- NOTE | 2024-09-16 17:22 | NUR ---
admit note and shift summary pT ARRIVED TO PCU FROM ED VIA ED STRETCHER AT APPROX NOON. PT AMBULATED INDEPENDENTLY FROM ER STRETCHER TO PCU BED. PT A&OX4. SP02>90% ON RA. TELEMETRY SHOWS NSR HR 90'S. BP HTN, 160'S SBP. DENIES PAIN. C/O OF BLACK TARRY STOOLS, NPO FOR EGD. PROTONIX INFUSING PER EMAR. OCTREOTIDE INFUSING PER EMAR. POTASSIUM INFUSING PER EMAR. DAY SX TO ROOM SHORTLY AFTER. PT LETHARGIC, STERNAL RUBBED TO BE AWAKENED. AMBULATED W/ ASSISTANCE FROM PCU BED TO DAY SX BED. UPON ARRIVING BACK TO PCU FROM EGD, PT REMAINS LETHARGIC. TOX SCREEN DONE, SEE RESULTS. POST OP VITALS. FOLIC ACID, THIAMINE INFUSING. BED ALARM ON. CALL LIGHT IN REACH.
[2024-09-16 19:06] LABS: Hematocrit 36.7 % (33.0-51.0); Hemoglobin 11.5 g/dL (11.5-16.0)
[2024-09-16 19:10] VITALS: BP 156/104
--- NOTE | 2024-09-16 20:12 | NUR ---
ASSUMPTION OF CARE ASSUMED CARE AT APPROXIMATELY 1900. PT A&O X4, ABLE TO MAKE NEEDS KNOWN. VSS, AFEBRILE, SPO2 >92% ON RA. TELE SHOWS SR 90S. PT IS HYPERTENSIVE WITH SBP 140-150 S, SHE STATES THIS IS HER BASELINE. SHE DENIES CP OR SOB AT THIS TIME. CIWA SCORE OF 0 AT THIS TIME. SHE STATES THAT HE LAST DRINK WAS YESTERDAY 09/15/24. PT CONTINUES TO BE SOMNOLENT. CLEAR LIQUID DIET PER MD ORDERS. OCTREOTIDE AND PROTINIX INFUSING PER EMAR. BREATHING IS EVEN AND UNLABORED, CALL LIGHT IN REACH.
[2024-09-16 23:30] VITALS: BP 146/103
[2024-09-17 03:56] VITALS: BP 135/100
[2024-09-17 03:57] LABS: BASOPHILS ABSOLUTE AUTO 0.06 K/mm3 (0.00-0.23); BASOPHILS PERCENT AUTO 1 % (0-2); EOSINOPHILS PERCENT AUTO 3 % (0-6); Hematocrit 38.9 % (33.0-51.0); Hemoglobin 12.3 g/dL (11.5-16.0); IMMATURE GRAN ABSOLUTE AUTO 0.02 K/mm3 (0.00-0.10); IMMATURE GRAN PERCENT AUTO 0 % (0-1); LYMPHOCYTES ABSOLUTE AUTO 1.35 K/mm3 (0.84-5.20); LYMPHOCYTES PERCENT AUTO 20 % (21-46); MONOCYTES ABSOLUTE AUTO 0.46 K/mm3 (0.16-1.47); MONOCYTES PERCENT AUTO 7 % (4-13); Mean Corpuscular HGB 29.6 pg (26.0-34.0); Mean Corpuscular HGB Conc 31.6 g/dL (31.5-36.5); Mean Corpuscular Volume 94 fL (80-100); Mean Platelet Volume 10.6 fL (9.1-12.4); NEUTROPHILS PERCENT AUTO 70 % (41-73); Platelet Count 183 K/mm3 (150-400); RDW Coefficient Variation 14.4 % (11.7-14.2); RDW Standard Deviation 49.1 fL (35.1-46.3); Red Blood Cell Count 4.15 M/mm3 (3.80-5.20); White Blood Cell Count 6.89 K/mm3 (4.00-11.30)
[2024-09-17 04:16] LABS: Albumin, Blood 3.5 g/dL (3.4-5.0); Albumin/Globulin Ratio 0.9 (0.8-1.8); Bilirubin, Total 0.8 mg/dL (0.1-1.0); Bun/Creatinine Ratio 28.3 (12.0-20.0); Calcium, Blood 8.3 mg/dL (8.5-10.1); Creatinine, Blood 0.67 mg/dL (0.40-1.00); Globulin, Blood 3.8 g/dL (2.2-4.0); Total Protein, Blood 7.3 g/dL (6.4-8.2)
--- NOTE | 2024-09-17 05:38 | NUR ---
SHIFT SUMMARY NO ACUTE CHANGES SINCE ASSUMPTION OF CARE. CIWA SCORES REMAINED AT 0. OCTREOTIDE AND PROTONIX INFUSING PER EMAR. VSS, AFEBRILE, BP STABLE. PT IS ONLY DRINKING WATER AT THIS TIME, SHE WILL BE NPO AT 0600. SHE IS RESTING IN BED, BREATHING EVEN AND UNLABORED, CALL LIGHT IN REACH.
[2024-09-17] MEDS ORDERED: Lactated Ringer's 1,000 ML IV SCH (07:15)
[2024-09-17 07:48] VITALS: BP 129/85
[2024-09-17] MEDS ORDERED: CefTRIAXone Sodium 1,000 MG in NS 100 ML IV SCH (09:00)
--- NOTE | 2024-09-17 09:11 | NUR ---
09/17/[address] HOLT; SEE ANESTHESIA RECORDS.
[2024-09-17 10:00] VITALS: BP 139/87
[2024-09-17] MEDS ORDERED: Folic Acid 1 MG TAB PO SCH (11:00)
[2024-09-17 11:32] VITALS: BP 159/111
[2024-09-17 15:09] VITALS: BP 150/89
[2024-09-17] MEDS ORDERED: CIPR500 PO (15:37)
--- NOTE | 2024-09-17 16:57 | NUR ---
DISCHARGE NOTE: THIS RN WENT OVER DISCHARGE INSTRUCTIONS WITH PATIENT AND AT BEDSIDE. PATIENT UNDERSTOOD TO GET NEW MEDCIATIONS FROM [facility] TOMORROW AND ONLY TAKE IT FOR 3 DAYS. AWARE OF THE EDUCATION WITHIN THE PACKET AND THE PHONE NUMBER TO CALL IF ANY QUESTIONS. IV'S WERE TAKEN OUT, TELE TAKEN OFF AND PATIENT WALKED OUT WITH ALL PERSONAL BELONGINGS WITH .
[2024-09-18] MEDS ORDERED: Thiamine HCl 100 MG Tab PO SCH (09:00)
[2024-09-18] MEDS ORDERED: Ciprofloxacin 500 MG Tab PO SCH (09:00)
== END 2024-09-17 17:19 | disposition home or self-care (01) ==
LOC: ER 07:08 → ERHOLD 07:09 → PCU 07:09
PROVIDERS: Internal Medicine Gastroenterology; Student in an Organized Health Care Education/Training Program; ADMIT Hospitalist
PROC: 0DJ08ZZ Inspection of Upper Intestinal Tract, Via Natural or Artificial Opening Endoscopic (ICD-10-PCS; principal; 2024-09-16 14:30)
PROC: 0DJ08ZZ Inspection of Upper Intestinal Tract, Via Natural or Artificial Opening Endoscopic (ICD-10-PCS; 2024-09-17)
DX: K92.1 Melena (principal); K76.6 Portal hypertension; K31.89 Other diseases of stomach and duodenum; I85.10 Secondary esophageal varices without bleeding; K70.30 Alcoholic cirrhosis of liver without ascites; D64.9 Anemia, unspecified; F10.10 Alcohol abuse, uncomplicated; K21.9 Gastro-esophageal reflux disease without esophagitis; I10 Essential (primary) hypertension; R16.1 Splenomegaly, not elsewhere classified; E87.6 Hypokalemia; F17.210 Nicotine dependence, cigarettes, uncomplicated; Z86.19 Personal history of other infectious and parasitic diseases; Z86.0101 Personal history of adenomatous and serrated colon polyps; Z79.899 Other long term (current) drug therapy
CPT/HCPCS: 36415; 74177; 80053; 80320; 82140; 82272; 83735; 84703; 85014; 85018; 85025; 85610; 85730; 86850; 86900; 86901; 96365; 96366; 96368; 96375; 96376; 99285-25; A9270; G0378; J0696; J2354; J2470; J2704; J2765; J3411; J3480; J7050; J7120; Q9967

== ENCOUNTER 2024-12-27 09:59 | Day surgery (SDC) | payer OTHER ==
[~2024-12-27] VITALS: Ht 177.8 cm; Wt 94.4 kg
[~2024-12-27 09:59] MED LIST changes: +CARV3.125 PO; +CIPR500 PO
[2024-12-27] MEDS ORDERED: Flonase 0.05% N16 GM (10:16)
[2024-12-27] MEDS ORDERED: ASCORBIC ACID500 MG (10:16)
--- NOTE | 2024-12-27 11:35 | NUR ---
12/27/24 1135 ZANDRA DELGADO VARICIES GRADE 2/4. BANDING KIT TO BE USED. 250MG PROPOFOL ALREADY USED. WAITING FOR KIT TO BE COMPLETE.
[2024-12-27] MEDS ORDERED: FentaNYL Citrate 50 MCG/ML 2 ML Injection ONE (13:17)
[2024-12-27] MEDS ORDERED: Labetalol HCL 5 MG/ML 4ML Injection (Single Dose) ONE (13:39)
--- NOTE | 2024-12-27 14:12 | NUR ---
12/27/24 1412 MATHEW SMITH PT HAD C/O CHEST PAIN RADIATING TO LEFT SIDE CHEST AND SHOULDER 12/14 LASTING JUST A FEW SECONDS THEN SUBSIDED. RN PUT 3 LEAD ON PT TO MONITOR HEART RYTHM. PT STATES SHE HAS NO OTHER NEW SYMPTOMS. RN EXPLAINED TO PT THAT THE BANDING OFTEN CAUSES THAT SUBSTERNAL PAIN TO RADIATE BUT IMPORTANT FOR HER TO MONITOR ANY OTHER SYMPTOMS NEW OR DIFFERENT. PT TOLD TASIA T HER ELEVATED BP WAS AT A CRITAL LEVEL AND SHE NEEDED TO GET THAT TX JENS. SHE MAY EVEN GO TO ER TO TX IT RIGHT AWAY. RN TOLD PT TO FOLLOW UP W/ HER PCP REGARDING CHANGE IN BP MEDS FOR BETTER CONTROL. PT STATES THAT SHE KNEW . "ITS BEEN LIKE THIS HIGH EVERY SINCE HE CHANGED HER BP MED LAST VIST."
[2024-12-27 14:31] VITALS: BP 175/102
== END 2024-12-27 14:49 | disposition home or self-care (01) ==
LOC: ORSCSDS 09:59
PROVIDERS: Internal Medicine Gastroenterology
PROC: 06L38CZ Occlusion of Esophageal Vein with Extraluminal Device, Via Natural or Artificial Opening Endoscopic (ICD-10-PCS; principal; 2024-12-27 11:00)
PROC: 0DBL8ZX Excision of Transverse Colon, Via Natural or Artificial Opening Endoscopic, Diagnostic (ICD-10-PCS; principal; 2024-12-27 11:00)
DX: D50.9 Iron deficiency anemia, unspecified (principal); D12.3 Benign neoplasm of transverse colon; Z86.0101 Personal history of adenomatous and serrated colon polyps; K70.30 Alcoholic cirrhosis of liver without ascites; K25.9 Gastric ulcer, unspecified as acute or chronic, without hemorrhage or perforation; Z86.19 Personal history of other infectious and parasitic diseases; I85.10 Secondary esophageal varices without bleeding; F17.210 Nicotine dependence, cigarettes, uncomplicated; I10 Essential (primary) hypertension; Z79.899 Other long term (current) drug therapy
CPT/HCPCS: 88305; A9270; J2704; J3010; J7120

== ENCOUNTER 2025-05-09 13:58 | Day surgery (SDC) | payer OTHER ==
[~2025-05-09] VITALS: Ht 177.8 cm; Wt 98.5 kg
[~2025-05-09 13:58] MED LIST changes: +ASCORBIC ACID500 MG; +Flonase 0.05% N16 GM; +Glycopyrrolate 0.2 MG/ML 1MLVIAL ONE; +Ondansetron HCl 2 MG / ML 2ML Vial ONE; +ePHEDrine Sulfate 50 MG/ML 1ML Injection ONE
[2025-05-09] MEDS ORDERED: Nadolol40 MG PO (14:16)
[2025-05-09] MEDS ORDERED: Benzocaine Oral Spray 0.5ML UD ONE (15:22)
[2025-05-09 16:15] VITALS: BP 121/91
== END 2025-05-09 16:08 | disposition home or self-care (01) ==
LOC: ORSCSDS 13:58
PROVIDERS: Specialist
PROC: 0DJ08ZZ Inspection of Upper Intestinal Tract, Via Natural or Artificial Opening Endoscopic (ICD-10-PCS; principal; 2025-05-09 15:15)
DX: K70.30 Alcoholic cirrhosis of liver without ascites (principal); I85.10 Secondary esophageal varices without bleeding; K70.10 Alcoholic hepatitis without ascites; B19.20 Unspecified viral hepatitis C without hepatic coma; K76.6 Portal hypertension; K31.89 Other diseases of stomach and duodenum; K44.9 Diaphragmatic hernia without obstruction or gangrene; F10.10 Alcohol abuse, uncomplicated; I10 Essential (primary) hypertension; E66.9 Obesity, unspecified; Z68.31 Body mass index [BMI] 31.0-31.9, adult; Z79.899 Other long term (current) drug therapy; Z87.891 Personal history of nicotine dependence
CPT/HCPCS: A9270; J0461; J2003; J2405; J2704; J7120; Q9968